=== PATIENT | female | born 1960 | race Caucasian/White ===

== ENCOUNTER → 2024-03-20 12:51 | Outpatient (REF) | payer MEDICARE, OTHER, SELFPAY | LOC: WDC 12:51 | PROVIDERS: ATTENDING PHYSICIAN Obstetrics & Gynecology; FAMILY PHYSICIAN Internal Medicine | DX: Z12.31 Encounter for screening mammogram for malignant neoplasm of breast (principal) | CPT/HCPCS: 77063; 77067 ==

== ENCOUNTER → 2024-04-03 11:05 | Outpatient (REF) | payer MEDICARE, OTHER, SELFPAY | LOC: WDC 11:05 | PROVIDERS: ATTENDING PHYSICIAN Obstetrics & Gynecology; FAMILY PHYSICIAN Internal Medicine | DX: R92.2 Inconclusive mammogram (principal) | CPT/HCPCS: 76641 ==